=== PATIENT | male | born 1995 | race Hispanic/Latino ===

== ENCOUNTER → 2018-04-01 | Outpatient (CLI) | payer BC | LOC: M RAD 14:23 | DX: R05 Cough (principal); R50.9 Fever, unspecified | CPT/HCPCS: 71046 ==

== ENCOUNTER 2018-04-18 14:49 | Emergency (ER) | payer BC ==
[~2018-04-18] VITALS: Ht 157.5 cm; Wt 46.8 kg
[2018-04-18] MEDS ORDERED: DESC1TAB PO (14:55)
[2018-04-18] MEDS ORDERED: TIVI1TAB PO (14:55)
[2018-04-18] MEDS ORDERED: NS 1,000 ML IV SCH (16:45)
--- NOTE | 2018-04-18 17:10 | REP ---
CT Head without contrast HISTORY: Syncope COMPARISON: None There is no intraparenchymal hemorrhage, acute infarct, mass or midline shift. The ventricular system is normal in appearance. There is no extra cerebral collection. There is no fracture. Mucosal thickening is present in the right frontal and ethmoid sinuses. IMPRESSION: There is no intracranial lesion. Electronically Signed by Paul Beltran MD 04/18/2018 05:02 P
--- NOTE | 2018-04-18 17:14 | REP ---
Chest x-ray: Two views. History: Dizziness and fever . Comparison study: April 01, 2018 . Findings: The lungs are well inflated and free of infiltrate. The pleural angles are sharp. The heart size is normal. Pulmonary vasculature is not increased. No significant bony abnormality is seen. Impression: Negative chest x-ray. Electronically Signed by Israel Jackson MD 04/18/2018 05:03 P
--- NOTE | 2018-04-18 17:16 | REP ---
CT cervical spine without contrast HISTORY: syncope COMPARISON: None There is no acute fracture or subluxation. There is no disc bulge or herniation. The spinal canal and neural foramina are patent. The intervertebral discs and vertebral bodies are normal in height. IMPRESSION: There is no acute fracture or subluxation. Electronically Signed by Paul Beltran MD 04/18/2018 05:08 P
[2018-04-18 17:29] LABS: BASO % 0.2 % (0.0-1.0); EOS # 0.1 10^3/uL (0.0-0.50); EOS % 1.3 % (0.0-3.0); HEMATOCRIT 52.2 % (42.0-52.0); HEMOGLOBIN 16.5 g/dl (13.5-17.5); LYMPH # 2.4 10^3/uL (1.5-6.5); LYMPH % 37.8 % (24.0-44.0); MEAN CORPUSCULAR HEMOGLOBIN 25.9 pg (27.0-33.0); MEAN CORPUSCULAR HGB CONC 31.6 g/dl (32.0-36.5); MEAN CORPUSCULAR VOLUME 82.1 fl (80.0-96.0); MONO # 0.6 10^3/uL (0.0-0.8); MONO % 10.3 % (0.0-5.0); NEUTROPHILS # 3.1 10^3/uL (1.8-7.7); NEUTROPHILS % 50.2 % (36.0-66.0); PLATELET COUNT, AUTOMATED 275 10^3/uL (150-450); RED BLOOD COUNT 6.36 10^6/uL (4.30-6.10); WHITE BLOOD COUNT 6.2 10^3/uL (4.0-10.0)
[2018-04-18 17:30] LABS: VENOUS BASE EXCESS -1.7 (-2.0-2.0); VENOUS HCO3 26.3 MEQ/L (23.0-27.0); VENOUS O2 SATURATION 44.3 % (60.0-80.0); VENOUS PARTIAL PRESSURE CO2 56.4 mmHg (38.0-50.0); VENOUS PARTIAL PRESSURE O2 27.1 mmHg (30.0-50.0); VENOUS PH 7.286 UNITS (7.330-7.430); VENOUS STANDARD HCO3 21.6 MEQ/L
[2018-04-18 17:43] LABS: INR 1.2; PROTHROMBIN TIME 15.4 SECONDS (12.1-14.4)
[2018-04-18 17:44] LABS: PARTIAL THROMBOPLASTIN TIME 35.7 SECONDS (25.4-37.6)
[2018-04-18 17:47] LABS: D-DIMER QUANT 918.2 ng/ml (<500)
[2018-04-18 18:01] LABS: ALBUMIN 4.7 GM/DL (3.2-5.2); ALT/SGPT 12 U/L (12-78); BILIRUBIN,DIRECT 0.2 MG/DL (0.0-0.2); BILIRUBIN,TOTAL 0.8 MG/DL (0.2-1.0); BLOOD UREA NITROGEN 12 MG/DL (7-18); C REACTIVE PROTEIN QUANTITATIV < 0.30 MG/DL (0.00-0.30); CALCIUM LEVEL 10.1 MG/DL (8.5-10.1); CARBON DIOXIDE LEVEL 29 MEQ/L (21-32); CHLORIDE LEVEL 102 MEQ/L (98-107); CREATININE FOR GFR 0.85 MG/DL (0.70-1.30); FREE T4 1.03 NG/DL (0.76-1.46); GLOMERULAR FILTRATION RATE > 60.0 (>60); GLUCOSE, FASTING 96 MG/DL (70-100); MAGNESIUM LEVEL 2.3 MG/DL (1.8-2.4); POTASSIUM SERUM 4.6 MEQ/L (3.5-5.1); SODIUM LEVEL 138 MEQ/L (136-145); TOTAL PROTEIN 8.8 GM/DL (6.4-8.2)
[2018-04-18 18:10] LABS: INFLUENZA A AMPLIFICATION NEGATIVE (NEGATIVE); INFLUENZA B AMPLIFICATION NEGATIVE (NEGATIVE)
[2018-04-18] MEDS ORDERED: ISOVUE-370 76% 100ML VIAL (Q9967) As Ordered ONE (18:13)
--- NOTE | 2018-04-18 18:39 | REPVR ---
EXAM: CT Abdomen and Pelvis With Intravenous Contrast EXAM DATE/TIME: 04/18/2018 6:06 PM CLINICAL HISTORY: 22 years old, male; Pain; Abdominal pain; Periumbilical; Prior surgery; Surgery date: 6+ months; Surgery type: Hernia; Additional info: Fever/abd pain TECHNIQUE: Axial computed tomography images of the abdomen and pelvis with intravenous contrast. All CT scans at this facility use at least one of these dose optimization techniques: automated exposure control; mA and/or kV adjustment per patient size (includes targeted exams where dose is matched to clinical indication); or iterative reconstruction. Coronal and sagittal reformatted images were created and reviewed. CONTRAST: 100 ml of isovue 370 administered intravenously. COMPARISON: No relevant prior studies available. FINDINGS: Lower thorax: No acute findings. ABDOMEN: Liver: Normal. No mass. Gallbladder and bile ducts: Gallbladder is contracted likely due to nonfasting state which should be correlated clinically. Pancreas: Normal. No ductal dilation. Spleen: Top normal splenic size. Adrenals: Normal. No mass. Kidneys and ureters: Normal. No hydronephrosis. Stomach and bowel: Normal. No obstruction. No mucosal thickening. Appendix: No evidence of appendicitis. PELVIS: Bladder: Unremarkable as visualized. Reproductive: Mild prostatomegaly. ABDOMEN and PELVIS: Intraperitoneal space: Normal. No free air. No significant fluid collection. Bones/joints: No acute fracture. No dislocation. Soft tissues: Unremarkable. Vasculature: Normal. No abdominal aortic aneurysm. Lymph nodes: Normal. No enlarged lymph nodes. IMPRESSION: 1. Mild prostatomegaly. 2. Top normal splenic size. 3. No acute findings. Electronically signed by: Alexander Slater On 04/18/2018 18:39:22 PM
--- NOTE | 2018-04-18 18:46 | REPVR ---
EXAM: CT Angiography Chest With Intravenous Contrast EXAM DATE/TIME: 04/18/2018 6:06 PM CLINICAL HISTORY: 22 years old, male; Abnormal findings; Abnormal diagnostic tests; Elevated d-dimer; Additional info: Dizziness/inc ddimer TECHNIQUE: Axial computed tomographic angiography images of the chest with intravenous contrast using CT angiography protocol. All CT scans at this facility use at least one of these dose optimization techniques: automated exposure control; mA and/or kV adjustment per patient size (includes targeted exams where dose is matched to clinical indication); or iterative reconstruction. Coronal and sagittal reformatted images were created and reviewed. MIP reconstructed images were created and reviewed. CONTRAST: 100 ml of isovue 370 administered intravenously. COMPARISON: CR Chest, 2 view PA, Lat 04/18/2018 4:59 PM FINDINGS: Pulmonary arteries: Dilated main pulmonary artery may signify underlying pulmonary valvular disease. Clinical correlation needed. Aorta: Normal. No aortic aneurysm. No aortic dissection. Lungs: Small groundglass nodules right upper lobe measured 4.4 mm likely postinflammatory. No followup necessary. Pleural space: Normal. No pneumothorax. No pleural effusion. Heart: Normal. No cardiomegaly. No pericardial effusion. Bones/joints: Unremarkable. No acute fracture. Soft tissues: Unremarkable. Lymph nodes: Unremarkable. No enlarged lymph nodes. IMPRESSION: 1. Small groundglass nodules right upper lobe measured 4.4 mm likely postinflammatory. No followup necessary. 2. Dilated main pulmonary artery may signify underlying pulmonary valvular disease. Clinical correlation needed. 3. No pulmonary embolus. No aortic dissection or aneurysm. Electronically signed by: Alexander Slater On 04/18/2018 18:46:08 PM
[2018-04-18 19:14] LABS: MONO SCRN NEGATIVE (NEGATIVE)
[2018-04-18] MEDS ORDERED: diphenhydrAMINE INJ 50MG/ML VIAL (J1200) IV STA (19:22)
[2018-04-18] MEDS ORDERED: MORPHINE 2 MG/ML 1ML SYRINGE (J2270) IV PRN (19:30)
[2018-04-18] MEDS ORDERED: ACETAMINOPHEN 325 MG TAB PO ONE (19:30)
[2018-04-18] MEDS ORDERED: METOCLOPRAMIDE INJ 10MG/2ML VIAL (J2765) IV ONE (19:30)
[2018-04-18 20:10] LABS: ABG BASE EXCESS -1.9 (-2.0-2.0); ABG HCO3 21.4 MEQ/L (22.0-26.0); ABG O2 SATURATION 99.6 % (95.0-99.0); ABG PARTIAL PRESSURE CO2 32.7 mmHg (35.0-45.0); ABG PARTIAL PRESSURE O2 196.2 mmHg (75.0-100.0); ABG STANDARD HCO3 22.9 MEQ/L (22.0-26.0); ABG TOTAL CO2 22.4 MEQ/L (22.0-29.0); ABG pH (ARTERIAL) 7.433 UNITS (7.350-7.450)
[2018-04-18] MEDS ORDERED: TYLE500T78 PO (20:44)
[2018-04-18] MEDS ORDERED: REGL10TA6 PO (20:44)
[2018-04-18] MEDS ORDERED: AUGMENTIN 875 MG TAB PO ONE (20:45)
[2018-04-18 21:13] VITALS: BP 108/56
--- NOTE | 2018-04-23 13:17 | ED PDOC ---
Post-Departure Follow-Up dr rowe faxed formal report of cta for fu priceg Eleanor Hernandez MD Apr 23, 2018 13:17
== END 2018-04-18 21:13 | disposition home or self-care (01) ==
LOC: M ED 14:49
DX: R51 Headache (principal); R42 Dizziness and giddiness; M54.2 Cervicalgia; J32.9 Chronic sinusitis, unspecified; R11.0 Nausea; B20 Human immunodeficiency virus [HIV] disease; R10.814 Left lower quadrant abdominal tenderness; F31.9 Bipolar disorder, unspecified; Z79.899 Other long term (current) drug therapy
CPT/HCPCS: 36415; 36600; 70450; 71046; 71275; 72125; 74177; 80048; 80076; 81001; 82803; 83605; 83735; 84439; 84443; 85025; 85379; 85610; 85730; 86140; 86308; 87040; 87502; 87880; 96374; 96375; 99284; J1200; J2270; J2765; Q9967